=== PATIENT | female | born 1940 | race American Indian/Alaskan Native ===

== ENCOUNTER → 2019-04-02 10:28 | Outpatient (CLI) | payer MEDICARE, BC, SELFPAY ==
--- NOTE | 2019-04-02 | DI.RAD.S_ITS ---
PROCEDURE: XR CHEST 2V INDICATIONS: Dyspnea TECHNIQUE: 2 views of the chest were acquired. COMPARISON: [facility], , CHEST 2 VIEW, 07/20/2015, 10:23. FINDINGS: Surgical changes and devices: None. Lungs and pleura: There is pulmonary vascular congestion. Trace bilateral pleural effusion is seen with blunting of bilateral costophrenic angles. No definite focal infiltrate. No gross pneumothorax. Mediastinum: Mediastinal contours are normal. Heart size is enlarged. Bones and chest wall: No suspicious bony abnormalities. Soft tissues appear unremarkable. IMPRESSION: CHF changes. Trace bilateral pleural effusion. No definite focal infiltrate or gross pneumothorax. Dictated by: Chad Cortés M.D. on 04/02/2019 at 11:33 Approved by: Chad Cortés M.D. on 04/02/2019 at 11:34
[2019-04-02 11:03] LABS: Add Manual Diff / Slide Review NO; Basophils Absolute Auto 100 /uL (0-100); Basophils Percent Auto 0.7 % (0-2); Eosinophils Absolute Auto 100 /uL (0-450); Hematocrit 41.3 % (36-46); Hemoglobin 14.1 g/dL (12.0-16.0); Lymphocytes Absolute Auto 1000 /uL (1100-4500); Lymphocytes Percent Auto 12.8 % (25-40); Mean Corpuscular HGB Conc 34.1 % (30-36); Mean Corpuscular Hemoglobin 35.4 PG (26-34); Mean Corpuscular Volume 103.8 fL (80-100); Monocytes Absolute Auto 900 /uL (0-900); Monocytes Percent Auto 11.6 % (3-14); Neutrophils Absolute Auto 5500 /uL (1500-7000); Neutrophils Percent Auto 72.9 % (50-75); Platelet Count 314 X10^3/uL (150-400); Red Blood Cell Count 3.98 X10^6/uL (4.0-5.2); Red Cell Distribution Width 14.3 % (11.6-14.8); White Blood Cell Count 7.5 X10^3/uL (4.5-11.0)
[2019-04-02 11:12] LABS: Alanine Aminotransferase 28 IU/L (9-52); Albumin 4.5 g/dL (3.5-5.0); Albumin Globulin Ratio 1.3 (1.0-2.8); Alkaline Phosphatase 71 U/L (38-126); Aspartate Aminotransferase 36 IU/L (14-36); BUN Creatinine Ratio 27.8 (6-22); Bilirubin Total 0.7 mg/dL (0.2-1.3); Blood Urea Nitrogen 25 mg/dL (7-17); Calcium 9.5 mg/dL (8.4-10.2); Carbon Dioxide 30 mmol/L (22-32); Chloride 101 mmol/L (98-107); Estimated Glomerular Filt Rate > 60.0 mL/min (>60); Globulin 3.6 g/dL (1.7-4.1); Glucose 94 mg/dL (80-110); HEMOLYSIS < 15 (0-50); Potassium 4.8 mmol/L (3.4-5.1); Sodium 142 mmol/L (137-145); Total Protein 8.1 g/dL (6.3-8.2)
[2019-04-02 11:21] LABS: B Type Natriuretic Peptide 945 (<100)
[2019-04-02 12:25] LABS: TSH w/ Reflex to FT4 1.84 uIU/mL (0.47-4.68)
== END ==
PROVIDERS: PCP Internal Medicine; Visit Provider Internal Medicine
DX: R06.00 Dyspnea, unspecified (principal); I50.9 Heart failure, unspecified; I48.91 Unspecified atrial fibrillation
CPT/HCPCS: 36415; 71046; 80053; 83880; 84443; 85025

== ENCOUNTER → 2019-04-17 14:23 | Outpatient (ROUT) | payer MEDICARE, BC, SELFPAY ==
[2019-04-17 14:45] LABS: Alanine Aminotransferase 75 IU/L (9-52); Albumin Globulin Ratio 1.3 (1.0-2.8); Alkaline Phosphatase 82 U/L (38-126); Aspartate Aminotransferase 58 IU/L (14-36); Bilirubin Total 0.6 mg/dL (0.2-1.3); Blood Urea Nitrogen 28 mg/dL (7-17); Calcium 9.5 mg/dL (8.4-10.2); Carbon Dioxide 31 mmol/L (22-32); Chloride 97 mmol/L (98-107); Estimated Glomerular Filt Rate 53.2 mL/min (>60); Globulin 3.2 g/dL (1.7-4.1); Glucose 92 mg/dL (80-110); HEMOLYSIS < 15 (0-50); Magnesium 2.3 mg/dL (1.6-2.3); Potassium 4.9 mmol/L (3.4-5.1); Sodium 138 mmol/L (137-145); Total Protein 7.2 g/dL (6.3-8.2)
[2019-04-17 14:54] LABS: B Type Natriuretic Peptide 1590 (<100)
== END ==
PROVIDERS: PCP Internal Medicine; Visit Provider Internal Medicine
DX: I50.9 Heart failure, unspecified (principal); I49.9 Cardiac arrhythmia, unspecified
CPT/HCPCS: 80053; 83735; 83880

== ENCOUNTER → 2019-04-21 07:48 | Outpatient (CLI) | payer MEDICARE, BC, SELFPAY ==
--- NOTE | 2019-04-21 08:00 | DI.ECHO.S_ITS ---
Echocardiogram Report + + :Name: KENNETH CONNOLLY Study Date: 04/21/2019 Height: 63 in : :[facility] Exam Location: [facility] Weight: 138 lb : : Gender: Female BSA: 1.7 m2 : :: 1940 Age: 79 yrs BP: 118/90 mmHg: :Reason For Study: Heart failure : :Ordering Physician: Dr. Crowe : :Deya Performed By: Tami Page : + + Interpretation Summary The patient was in atrial fibrillation with heart rates between 96-132 bpm during the exam. Moderately dilated left ventricle with ejection fraction 20-25%. There is severe global hypokinesis of the left ventricle. Grossly normal right ventricle size with borderline reduced right ventricular systolic function. Severely dilated both atria. Moderate to severe mitral regurgitation. Mild tricuspid regurgitation. The right ventricular systolic pressure is estimated to be at least 32 mmHg based on an estimated right atrial pressure of 8 mm Hg. Comparison is made with the echocardiogram of 04/08/2014, LV function has significantly worsen. Procedure: A two-dimensional transthoracic echocardiogram with color flow and Doppler was performed. The study quality was technically adequate. Comparison is made with the echocardiogram of 04/08/2014. The patient was in atrial fibrillation with heart rates between 96-132 bpm during the exam. Left Ventricle: The left ventricle is moderately dilated. There is normal left ventricular wall thickness. The ejection fraction is estimated to be 20- 25%. There is severe global hypokinesis of the left ventricle. Diastolic function could not be accurately assessed due to atrial fibrillation. Right Ventricle: The right ventricle is grossly normal size. Right ventricular systolic function is borderline reduced. Atria: Both atria are severely dilated. There is no Doppler evidence for an interatrial shunt. Mitral Valve: The mitral valve leaflets appear moderately thickened, but open well. There is moderate to severe mitral regurgitation. Aortic Valve: The aortic valve is trileaflet. No aortic regurgitation is present. Tricuspid Valve: The tricuspid valve leaflets are thin and pliable. There is mild tricuspid regurgitation. The right ventricular systolic pressure is estimated to be at least 32 mmHg based on an estimated right atrial pressure of 8 mm Hg. Pulmonic Valve: The pulmonic valve is not well visualized. There is mild pulmonic regurgitation. Great Vessels: The aortic root is normal size. The pulmonary artery is not well visualized, but is probably normal size. The IVC is dilated (diameter is greater than 2.1 cm) yet it collapses greater than 50% with a sniff. This suggests a right atrial pressure of 8 mm Hg. Pericardium/ Pleura There is no pericardial effusion. There is an anterior echo-free space consistent with a fat pad. There is no pleural effusion. MMode/2D Measurements & Calculations LVIDd: 6.0 cm LVOT diam: 2.0 cm LVIDs: 4.9 cm Ao root diam: 2.8 cm FS: 17.9 % asc Aorta Diam: 3.0 cm EPSS: 1.5 cm IVSd: 0.87 cm LVPWd: 0.69 cm LV payton. diameter/BSA (cm/m^2): 3.6 LV sys. diameter/BSA (cm/m^2): 3.0 LA A2 area: 28.5 cm2 RA long axis: 5.9 cm LA A4 area: 23.9 cm2 RA area: 28.1 cm2 LA length (vol): 5.6 cm RA vol: 112.8 ml LA vol: 102.7 ml RA : 68.3 ml/m2 LA vol index: 62.2 ml/m2 IVC diam: 2.2 cm RVD1 (basal): 3.8 cm RVD2 (mid): 2.9 cm Doppler Measurements & Calculations Ao V2 max: 88.2 cm/sec LVOT Max Jonathon: 63.6 cm/sec Ao V2 mean: 66.7 cm/sec LV V1 max P.6 mmHg Ao max P.1 mmHg LV V1 VTI: 9.1 cm Ao mean P.9 mmHg URI(I,D): 2.1 cm2 Ao V2 VTI: 12.9 cm URI(V,D): 2.2 cm2 sev ratio: 0.70 URI indexed to BSA (cm^2/m^2): 1.3 MV E max jonathon: 113.6 cm/sec TR max jonathon: 246.1 cm/sec MV P1/2t: 37.1 msec TR max P.3 mmHg PA V2 max: 55.1 cm/sec PA V2 mean: 33.7 cm/sec PA mean P.54 mmHg PA Accel Time: 0.07 sec MV P1/2t max jonathon: 113.7 cm/sec SV(LVOT): 27.2 ml MVA(P1/2t): 5.9 cm2 _ Electronically signed by: Jose Montana on Reading Physician:04/21/2019 10:35 AM
== END ==
PROVIDERS: PCP Internal Medicine; Visit Provider Internal Medicine
DX: I08.1 Rheumatic disorders of both mitral and tricuspid valves (principal); I50.9 Heart failure, unspecified
CPT/HCPCS: 93306

== ENCOUNTER → 2019-09-18 10:40 | Outpatient (CLI) | payer MEDICARE, BC, SELFPAY ==
[2019-09-18 12:38] LABS: Alanine Aminotransferase 14 IU/L (<35); Albumin 4.5 g/dL (3.5-5.0); Albumin Globulin Ratio 1.3 (1.0-2.8); Alkaline Phosphatase 57 U/L (38-126); Aspartate Aminotransferase 24 IU/L (14-36); Bilirubin Total 0.4 mg/dL (0.2-1.3); Bilirubin Unconjugated 0.4 mg/dL (0.0-1.1); Globulin 3.5 g/dL (1.7-4.1); HEMOLYSIS < 15 (0-50)
[2019-09-18 13:07] LABS: Thyroid Stimulating Hormone 3.24 uIU/mL (0.47-4.68)
== END ==
PROVIDERS: PCP Internal Medicine; Referring Provider Internal Medicine Cardiovascular Disease; Visit Provider Internal Medicine Cardiovascular Disease
DX: I48.91 Unspecified atrial fibrillation (principal); I48.21 Permanent atrial fibrillation
CPT/HCPCS: 36415; 80076; 84443

== ENCOUNTER 2019-09-22 08:30 | Outpatient (RCR) | payer MEDICARE, BC, SELFPAY | END 2019-09-25 07:34 | LOC: CAR 08:30 | PROVIDERS: PCP Internal Medicine; Visit Provider Internal Medicine | DX: I50.22 Chronic systolic (congestive) heart failure (principal); I48.91 Unspecified atrial fibrillation | CPT/HCPCS: 93798 ==

== ENCOUNTER → 2020-01-06 11:45 | Outpatient (CLI) | payer MEDICARE, BC, SELFPAY ==
[2020-01-07 10:48] LABS: COVID19 Sendout NOT DETECTED (Not Detect)
== END ==
PROVIDERS: PCP Student in an Organized Health Care Education/Training Program; Visit Provider Physician Assistant
DX: Z01.812 Encounter for preprocedural laboratory examination (principal)
CPT/HCPCS: 87635

== ENCOUNTER → 2020-01-08 16:38 | Outpatient (CLI) | payer MEDICARE, BC, SELFPAY ==
--- NOTE | 2020-01-16 08:28 | PM.PFT.1 ---
Pulmonary Function Test Referral & Results Date Patient Seen: 01/08/20 Requesting provider: Darnell Rahman Results: The spirometry demonstrates an FVC of 1.30 L which is 53% of predicted. The FEV1 was measured at 780 mL which is 42% of predicted. The FEV1/FVC ratio was 60 which is 81% of predicted. No bronchodilator was administered No lung volumes were obtained. The diffusing capacity was measured at 14.94which is 65% of predicted. No hemoglobin value was provided, so no correction for potential anemia could be made, if appropriate. Interpretation: This patient's basic spirometry demonstrates severe obstructive lung disease based on significant reduction FEV1 which was measured at less than 1 L There is also reduction in diffusing capacity as above suggesting disease at the capillary alveolar level
== END ==
PROVIDERS: PCP Student in an Organized Health Care Education/Training Program; Referring Provider Internal Medicine Cardiovascular Disease; Visit Provider Student in an Organized Health Care Education/Training Program
DX: I50.22 Chronic systolic (congestive) heart failure (principal); Z87.891 Personal history of nicotine dependence
CPT/HCPCS: 94010; 94729

== ENCOUNTER 2020-02-23 09:24 | Emergency (ER) | payer MEDICARE, BC, SELFPAY ==
[2020-02-23 09:42] VITALS: BP 214/113; PULSE 100; RESP 16; TEMP 36.1; O2SAT 97; BMI 23.0
--- NOTE | 2020-02-23 11:29 | ED.UPPEXIN ---
HPI - Extremity Injury (Upper) <CARRIE SimeonP - Last Filed: 02/23/20 12:53> General Chief Complaint: Extremity Injury, Upper Stated Complaint: cut on left hand Time Seen by Provider: 02/23/20 11:15 Source: patient Mode of arrival: Ambulatory Limitations: no limitations History of Present Illness HPI narrative: This is a 80 year female, former smoker, with history of AFib and takes Eliquis and metoprolol ir presents to ED with left dorsal metacarpal skin injury since yesterday afternoon. Patient reports she tripped on a brick walkway and accidentally hit left dorsal hand on a big garden pot and sustain skin injury. Patient was not able to drive at night so she presents this morning for an evaluation and treatment. Patient reports last tetanus immunization received more than 10 years ago. Patient reports intact sensation distal to injuries. She is able to move all her fingers without difficulty. There is moderate swelling on affected site and distally. Slight warmth and redness around the injury site. Related Data Home Medications Medication Instructions Recorded Confirmed Metoprolol Tartrate (LOPRESSOR) 25 mg PO .qday tab 11/21/19 apixaban 2.5 mg tablet 2.5 mg PO BID 11/21/19 11/21/19 valsartan 80 mg tablet 80 mg PO DAILY 11/21/19 11/21/19 Previous Rx's Medication Instructions Recorded cephalexin [Keflex] 500 mg PO Q6H 5 Days #20 cap 02/23/20 Allergies Allergy/AdvReac Type Severity Reaction Status Date / Time No Known Drug Allergies Allergy Unverified 11/21/19 10:23 Review of Systems <DANIELA Simeon - Last Filed: 02/23/20 12:53> Review of Systems Narrative: General: Denies fever, chills, fatigue, malaise, sweats. HEENT: Denies sinus pain, ear pain, sore throat, difficulty swallowing, dizziness. Respiratory: Denies dyspnea, cough, wheezing, hemoptysis, sputum. Cardiovascular: Denies chest pain, palpitations, orthopnea, edema. Gastrointestinal: Denies nausea, vomiting, abdominal pain, diarrhea, constipation, melena. : Denies dysuria, frequency, incontinence, hematuria, urinary retention. Musculoskeletal: Denies weakness, joint pain or bony pain. Skin: See HPI Neurologic: Denies weakness, headache, numbness, change in speech, confusion, seizures, incoordination. Psychiatric: No concerning psychosocial issues. 12-point review of systems is negative except for those stated above. Patient History <DANIELA Simeon - Last Filed: 02/23/20 12:53> Medical History Atrial fibrillation with rapid ventricular response (Chronic ~2011) Chicken pox (Resolved ~1943) Measles (Resolved) Plantar warts (Inactive ~1951) Tinnitus (Chronic ~2014) Surgical History History of cataract removal with insertion of prosthetic lens (Resolved ~2017) Family History Father History of heart disease Mother Cancer Sister Cancer Social History Smoking Status: Former smoker Smoking Status: Former smoker alcohol intake frequency: 0-2 drinks per day Substance Use Type: does not use Exam <DANIELA Simeon - Last Filed: 02/23/20 12:53> Narrative Exam Narrative: General appearance: well developed, well nourished, in no acute distress. Head: normocephalic, atraumatic, no scalp lesions, non-tender. ENT: Bilateral auditory canals and tympanic membranes clear. Hearing grossly intact. Nose without bleeding, purulent discharge, septal hematoma or deviation. Turbinate without erythema or swelling. Facial sinuses nontender to palpate. Mucous membrane moist, no mucosal lesion. Throat without erythema, tonsillar hypertrophy or exudate. Uvula in midline, airway patent. Neck/Thyroid: neck supple, full range of motion, no visible masses or meningeal signs. No JVD, non-tender without lymphadenopathy. Skin: 3 x 3 cm flap-like skin tear w/o active bleeding. slight warmth, swelling and redness around the injury. Warm and dry and appropriate color for ethnicity. Heart: no clubbing, no cyanosis, no edema. S1 and S2 normal. RRR w/o murmurs, clicks, or bruits. Lungs: Breathing even and unlabored. No stridor. No accessory muscles used. Able to speak in full sentences. Chest: normal shape and expansion. Abdomen: non-obese, non-distended. Neurologic: alert and oriented. 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 Psych: good eye contact, normal affect. Initial Vital Signs Initial Vital Signs: Vital Signs Temperature 97.0 F L 02/23/20 09:42 Pulse Rate 100 H 02/23/20 09:42 Respiratory Rate 16 02/23/20 09:42 Blood Pressure 214/113 H 02/23/20 09:42 Pulse Oximetry 97 02/23/20 09:42 Extrem Left upper extremity: wrist Details: normal to inspection and normal ROM; no tenderness and no swelling and hand Details: abnormal to inspection, normal capillary refill, neuromotor exam normal, neurosensory exam normal, normal ROM of fingers, warmth, swelling and other (erythema around the injury); no foreign bodies and no puncture wound <Too Abdalla MD - Last Filed: 02/24/20 07:35> Initial Vital Signs Initial Vital Signs: Vital Signs Temperature 97.0 F L 02/23/20 09:42 Pulse Rate 100 H 02/23/20 09:42 Respiratory Rate 16 02/23/20 09:42 Blood Pressure 214/113 H 02/23/20 09:42 Pulse Oximetry 97 02/23/20 09:42 Procedures <DANIELA Simeon - Last Filed: 02/23/20 12:53> Laceration Repair Laceration 1: Site: hand Side (If applicable): left Size (cm): 3 (3x3) Description: flap Depth: simple, single layer Pre-repair: wound explored and irrigated extensively Skin layer closed with: steri-strips Scores <DANIELA Simeon - Last Filed: 02/23/20 12:53> GCS Ryan coma scale eye opening: Spontaneous Ryan coma scale verbal response: Orientated Ryan coma scale motor response: Obey commands [place] coma scale total score: 15 Course <DANIELA Simeon - Last Filed: 02/23/20 12:53> Orders Ordered: Discontinued Medications Bacitracin (Bacitracin) 1 applic TOP NOW ONE Stop: 02/23/20 11:29 Last Admin: 02/23/20 11:52 Dose: 1 applic Documented by: BTONER Cephalexin HCl (Keflex) 500 mg PO NOW ONE Stop: 02/23/20 11:29 Last Admin: 02/23/20 11:52 Dose: 500 mg Documented by: BTONER Diphtheria/Tetanus/Acell Pertussis (Adacel) 0.5 ml IM .ONCE ONE Stop: 02/23/20 11:26 Last Admin: 02/23/20 11:48 Dose: Not Given Documented by: BTONER Tetanus/Diphtheria Toxoids (Td) 0.5 ml IM .ONCE ONE Stop: 02/23/20 11:48 Last Admin: 02/23/20 11:51 Dose: 0.5 ml Documented by: BTONER Vital Signs Vital signs: Vital Signs - 8 hr 02/23/20 09:42 Temperature 97.0 F L Pulse Rate 100 H Respiratory Rate 16 Blood Pressure 214/113 H Pulse Oximetry 97 <Too Abdalla MD - Last Filed: 02/24/20 07:35> Orders Ordered: Discontinued Medications Bacitracin (Bacitracin) 1 applic TOP NOW ONE Stop: 02/23/20 11:29 Last Admin: 02/23/20 11:52 Dose: 1 applic Documented by: BTONER Cephalexin HCl (Keflex) 500 mg PO NOW ONE Stop: 02/23/20 11:29 Last Admin: 02/23/20 11:52 Dose: 500 mg Documented by: BTONER Diphtheria/Tetanus/Acell Pertussis (Adacel) 0.5 ml IM .ONCE ONE Stop: 02/23/20 11:26 Last Admin: 02/23/20 11:48 Dose: Not Given Documented by: BTONER Tetanus/Diphtheria Toxoids (Td) 0.5 ml IM .ONCE ONE Stop: 02/23/20 11:48 Last Admin: 02/23/20 11:51 Dose: 0.5 ml Documented by: BTONER Vital Signs Vital signs: Vital Signs - 8 hr 02/23/20 09:42 Temperature 97.0 F L Pulse Rate 100 H Respiratory Rate 16 Blood Pressure 214/113 H Pulse Oximetry 97 MDM - Extremity Injury (Upper) <DANIELA Simeon - Last Filed: 02/23/20 12:53> Differential Diagnosis Differential diagnosis: Likely other (Skin tear, laceration, contusion, cellulitis) Medical Records Attestation: I reviewed the patient's medical records. MDM Narrative Medical decision making narrative: This is a 80 year female who presents to ED with left non dominant hand dorsal aspect metacarpal skin tear which happened yesterday afternoon. Surrounding site with mild erythema, swelling, warmth. No active bleeding at this time but skin wound edges not approximate well when attempted to put together. Skin tear is not deep enough to repair with suture. Skin tear was repaired with Steri-Strips after patient soaked in Hibiclens water and dressed with Allevyn Gentle boarder. Patient advised to monitor for signs and symptoms for infection and to follow-up with Dr. Quijano in two to three days. Started patient on antibiotic medication Keflex 500 mg Q i.d. Dose for 5 days due to surrounding skin findings. Patient up dated with tetanus immunization today. Return precautions were discussed with the patient and patient verbalized understanding and agreement with the treatment plan. Discharge Plan Departure Patient Disposition: Home Clinical Impression: Skin tear of left upper extremity Discharge Date/Time: 02/23/20 12:25 Instructions: DI for Laceration Repair-Skin Closure Strips Activity Restrictions/Additional Instructions: You have been diagnosed with [skin tear on left non dominant hand dorsal metacarpal which repaired with Steri-Strips. You were treated with 1st dose of Keflex while in ED.]. What to do: *Take your medications as directed. Please continue with Keflex 4 times a day for next 5 days. You can take [id number] Tylenol as needed for discomfort. Keflex has been transmitted to [facility]. *Follow up with your primary care provider in 2-3 days, call for an appointment. Let them know you were seen in the ED and that we asked you to be seen in follow up. Please monitor for signs and symptoms for infection such as increasing pain, redness, warmth to touch, purulent discharge, fever. *Return to ED if you have any new, worsening, or concerning symptoms, such as signs and symptoms for infection, chest pain, breathing difficulty, unable to tolerate fluids, or any acute concerns. Prescriptions: New cephalexin [Keflex] 500 mg capsule 500 mg PO Q6H 5 Days Qty: 20 RF: 0 No Action Eliquis 2.5 mg tablet 2.5 mg PO BID RF: 0 valsartan 80 mg tablet 80 mg PO DAILY RF: 0 Metoprolol Tartrate (LOPRESSOR) 25 mg PO .qday RF: 0 Referrals: Andi Quijano MD [Primary Care Provider] - <Too Abdalla MD - Last Filed: 02/24/20 07:35> Cosign ED Attending Cosignature Attestation: I was immediately available in the department for consultation. This documentation has been reviewed and I agree with assessment and plan. Supervised by Too Abdalla MD
[2020-02-23] MEDS: TETANUS DIPHTHERIA TOXOIDS 0.5 ML VIAL IM (11:51)
[2020-02-23] MEDS: BACITRACIN OINT 0.9 GM PCKT 1 APPLIC TOP (11:52)
[2020-02-23] MEDS: cephALEXin 250 MG CAPSULE 500 MG PO (11:52)
[2020-02-23 12:23] VITALS: PULSE 72
== END 2020-02-23 12:25 | disposition home or self-care (01) ==
PROVIDERS: Emergency Provider Nurse Practitioner Family; PCP Student in an Organized Health Care Education/Training Program
DX: S61.412A Laceration without foreign body of left hand, initial encounter (principal); W19.XXXA Unspecified fall, initial encounter; I10 Essential (primary) hypertension; I48.91 Unspecified atrial fibrillation; Z79.01 Long term (current) use of anticoagulants; Z23 Encounter for immunization
CPT/HCPCS: 90471; 90714; 99283

== ENCOUNTER → 2020-09-23 10:21 | Outpatient (CLI) | payer MEDICARE, BC, SELFPAY ==
[2020-09-23 11:31] LABS: BUN Creatinine Ratio 24.1 (6-22); Blood Urea Nitrogen 21 mg/dL (7-17); Calcium 9.5 mg/dL (8.4-10.2); Carbon Dioxide 32 mmol/L (22-32); Chloride 100 mmol/L (98-107); Estimated Glomerular Filt Rate > 60.0 mL/min (>60); Glucose 102 mg/dL (80-110); HEMOLYSIS < 15 (0-50); Potassium 4.5 mmol/L (3.4-5.1); Sodium 139 mmol/L (137-145)
== END ==
PROVIDERS: PCP Student in an Organized Health Care Education/Training Program; Referring Provider Internal Medicine Cardiovascular Disease; Visit Provider Internal Medicine Cardiovascular Disease
DX: I48.91 Unspecified atrial fibrillation (principal); I48.19 Other persistent atrial fibrillation
CPT/HCPCS: 36415; 80048

== ENCOUNTER 2022-06-05 14:38 | Emergency (ER) | payer MEDICARE, BC, SELFPAY ==
[2022-06-05] VITALS (8 sets, daily range): BP systolic 166–196; BP diastolic 82–102; PULSE 98–113; RESP 20–35; TEMP 37.3; O2SAT 92–96
--- NOTE | 2022-06-05 14:51 | DI.RAD.S_ITS ---
PROCEDURE: XR CHEST 1V INDICATIONS: Shortness of breath TECHNIQUE: One view of the chest was acquired. COMPARISON: [facility], CR, XR CHEST 2V, 04/02/2019, 10:58. FINDINGS: Surgical changes and devices: None. Lungs and pleura: Mild increased pulmonary vascularity. Mediastinum: Mediastinal contours appear normal. Heart size is enlarged Bones and chest wall: No suspicious bony lesions. Overlying soft tissues appear unremarkable. IMPRESSION: Cardiomegaly with increased vascularity suggestive of edema. Dictated by: Raven Carty M.D. on 06/05/2022 at 16:58 Approved by: Raven Carty M.D. on 06/05/2022 at 16:58
[2022-06-05 15:59] LABS: Influenza A - CEPHEID Flu A NEGATIVE (NEGATIVE); Influenza B - CEPHEID Flu B NEGATIVE (NEGATIVE); Respiratory Syncytial Virus Negative (Negative)
[2022-06-05 16:04] LABS: INR 1.3 (0.9-1.3); Prothrombin Time 15.4 SECONDS (10.1-12.7)
[2022-06-05 16:04] LABS: COVID-19 CEPHEID 4-PLEX PCR POSITIVE (Negative)
[2022-06-05 16:08] LABS: Lactate (Lactic Acid) 0.7 mmol/L (0.7-2.1)
[2022-06-05 16:09] LABS: Add Manual Diff / Slide Review NO; Alanine Aminotransferase 15 IU/L (<35); Albumin Globulin Ratio 1.1 (1.0-2.8); Alkaline Phosphatase 72 U/L (38-126); Aspartate Aminotransferase 25 IU/L (14-36); BUN Creatinine Ratio 20.5 (6-22); Basophils Absolute Auto 0 /uL (0-100); Basophils Percent Auto 0.9 % (0-2); Bilirubin Total 0.6 mg/dL (0.2-1.3); Blood Urea Nitrogen 16 mg/dL (7-17); Carbon Dioxide 30 mmol/L (22-32); Chloride 97 mmol/L (98-107); Eosinophils Absolute Auto 100 /uL (0-450); Eosinophils Percent Auto 2.4 % (2-4); Estimated Glomerular Filt Rate > 60 mL/min (>60); Globulin 3.7 g/dL (1.7-4.1); Glucose 102 mg/dL (80-110); HEMOLYSIS < 15 (0-50); Hematocrit 40.3 % (36-46); Hemoglobin 13.9 g/dL (12.0-16.0); Lymphocytes Absolute Auto 200 /uL (1100-4500); Lymphocytes Percent Auto 4.3 % (25-40); Mean Corpuscular HGB Conc 34.4 % (30-36); Mean Corpuscular Hemoglobin 35.6 PG (26-34); Mean Corpuscular Volume 103.3 fL (80-100); Monocytes Absolute Auto 900 /uL (0-900); Monocytes Percent Auto 18.5 % (3-14); Neutrophils Absolute Auto 3600 /uL (1500-7000); Neutrophils Percent Auto 73.9 % (50-75); Platelet Count 219 X10^3/uL (150-400); Potassium 4.1 mmol/L (3.4-5.1); Red Cell Distribution Width 14.4 % (11.6-14.8); Sodium 136 mmol/L (137-145); Total Protein 7.7 g/dL (6.3-8.2); White Blood Cell Count 4.9 X10^3/uL (4.5-11.0)
[2022-06-05 16:21] LABS: NT-proBNP (BNP-Adult 18+) 2120 pg/mL (<450); Troponin I < 0.012 ng/mL (0.01-0.034)
[2022-06-05] MEDS: ACETAMINOPHEN 325 MG TABLET 975 MG PO (18:04)
--- NOTE | 2022-06-05 18:09 | ED.SOB ---
HPI - SOB/Dyspnea General Chief Complaint: Shortness of Breath/Dyspnea Stated Complaint: Very Ill feeling in AFIB, Nausea Time Seen by Provider: 06/05/22 17:52 Source: patient Mode of arrival: Family Vehicle History of Present Illness HPI Narrative: 82-year-old female former smoker with history of hypertension and atrial fibrillation chronically on Eliquis presents to the emergency department with a chief complaint of feeling generally unwell since yesterday with complaints including nausea, generalized headache and shortness of breath. She has been nauseated and had some dry heaves but no actual vomiting. She is had no fever but does complain of some chills. She has no headache, blurred vision or neck pain. She has no runny nose or sore throat. She has had a dry and hacking cough. She states that she does become slightly more short of breath with exertion but denies any orthopnea. She has no weight gain or swelling in her legs. She states she has persistent atrial fibrillation. She denies any change in her medications Related Data Home Medications Medication Instructions Recorded Confirmed apixaban 2.5 mg tablet (Eliquis) 2.5 mg PO BID 11/21/19 02/25/20 valsartan 80 mg tablet 80 mg PO DAILY 11/21/19 02/25/20 diltiazem HCl 180 mg 180 mg PO DAILY HR and BP control 09/21/20 capsule,extended release 24 hr Previous Rx's Medication Instructions Recorded furosemide 40 mg tablet (Lasix) 40 mg PO DAILY #4 tabs 06/05/22 Allergies Allergy/AdvReac Type Severity Reaction Status Date / Time No Known Drug Allergies Allergy Unverified 06/05/22 14:51 Review of Systems Review of Systems Narrative: GENERAL: See HPI HEENT: Denies sinus pain, ear pain, sore throat, difficulty swallowing, dizziness. RESPIRATORY: See HPI CARDIOVASCULAR: See HPI GASTROINTESTINAL: See HPI : Denies dysuria, frequency, incontinence, hematuria, urinary retention. MUSCULOSKELETAL: denies weakness, joint pain, or bony pain SKIN: Denies rash, skin lesions, or other NEUROLOGIC: Denies weakness, headache, numbness, change in speech, confusion, seizures, incoordination. PSYCHIATRIC: No concerning psychosocial issues. 12 point review of systems is negative except for those stated above Patient History Medical History Atrial fibrillation with rapid ventricular response (~2011) Chicken pox (~1944) Measles Plantar warts (~1952) Tinnitus (~2015) Surgical History History of cataract removal with insertion of prosthetic lens (~2017) Family History Father History of heart disease Mother Cancer Sister Cancer Social History Smoking Status: Former smoker Smoking Status: Former smoker alcohol intake frequency: 0-2 drinks per day Substance Use Type: does not use Exam Narrative Exam Narrative: GENERAL: [82] year old patient appears stated age. Well-developed patient, in mild distress. No increased work of breathing, no hypoxemia HEAD: Atraumatic. Normocephalic. EYES: Pupils equal round and reactive. Extraocular motions intact. No scleral icterus. No injection or drainage. ENT: Nose without bleeding, purulent drainage. Throat without erythema, tonsillar hypertrophy or exudate. Airway patent. NECK: Trachea midline. Non tender CARDIOVASCULAR: Mildly tachycardic but regular d rhythm without murmurs, gallops, or rubs. RESPIRATORY: Faint crackles in bilateral bases, no tachypnea, hypoxemia or use of accessory muscles. GASTROINTESTINAL: Abdomen soft, non-tender, nondistended. EXTREMITIES: No edema or joint tenderness. BACK: Nontender without deformity or crepitance. No flank tenderness. NEURO: AOx3. SKIN: No rash or erythema of visible areas Initial Vital Signs Initial Vital Signs: Vital Signs Temperature 99.2 F 06/05/22 14:43 Pulse Rate 104 H 06/05/22 14:43 Respiratory Rate 22 06/05/22 14:43 Blood Pressure 182/96 H 06/05/22 14:43 Pulse Oximetry 96 06/05/22 14:43 Oxygen Delivery Method 06/05/22 14:43 Course Orders Ordered: Discontinued Medications Acetaminophen (Acetaminophen 325 Mg Tablet) 975 mg PO NOW ONE Stop: 06/05/22 17:53 Last Admin: 06/05/22 18:04 Dose: 975 mg Documented By: JSEUS Furosemide (Furosemide 40 Mg/4 Ml Vial) 40 mg IV NOW ONE Stop: 06/05/22 18:10 Last Admin: 06/05/22 18:36 Dose: 40 mg Documented By: JESUS Vital Signs Vital signs: Vital Signs - 8 hr 06/05/22 14:43 06/05/22 17:09 06/05/22 17:30 Temperature 99.2 F 99.2 F Pulse Rate 104 H 102 H Respiratory Rate 22 22 Blood Pressure 182/96 H 173/102 H Pulse Oximetry 96 95 Oxygen Delivery Method Room Air 06/05/22 17:30 06/05/22 18:00 06/05/22 18:00 Temperature Pulse Rate 113 H 102 H Respiratory Rate 35 H 20 Blood Pressure 173/89 H Pulse Oximetry 92 94 Oxygen Delivery Method Room Air 06/05/22 18:30 06/05/22 18:30 06/05/22 19:00 Temperature Pulse Rate 98 H Respiratory Rate 24 Blood Pressure 178/82 H 196/93 H Pulse Oximetry 94 Oxygen Delivery Method 06/05/22 19:00 Temperature Pulse Rate 105 H Respiratory Rate 34 H Blood Pressure Pulse Oximetry 95 Oxygen Delivery Method MDM - SOB/Dyspnea Lab Data Result diagrams: 06/05/22 15:22 06/05/22 15:22 Labs: Lab Results 06/05/22 06/05/22 06/05/22 Range/Units 14:54 15:22 15:22 WBC 4.9 (4.5-11.0) X10^3/uL RBC 3.90 L (4.0-5.2) X10^6/uL Hgb 13.9 (12.0-16.0) g/dL Hct 40.3 (36-46) % MCV 103.3 H (80-100) fL MCH 35.6 H (26-34) PG MCHC 34.4 (30-36) % RDW 14.4 (11.6-14.8) % Plt Count 219 (150-400) X10^3/uL Neut % (Auto) 73.9 (50-75) % Lymph % (Auto) 4.3 L (25-40) % [place] % (Auto) 18.5 H (3-14) % Eos % (Auto) 2.4 (2-4) % Baso % (Auto) 0.9 (0-2) % Neut # (Auto) 3600 (7147-8623) /uL Lymph # (Auto) 200 L (2560-2878) /uL [place] # (Auto) 900 (0-900) /uL Eos # (Auto) 100 (0-450) /uL Baso # (Auto) 0 (0-100) /uL PT 15.4 H (10.1-12.7) SECONDS INR 1.3 (0.9-1.3) D-Dimer (<500) ng/ml Sodium (137-145) mmol/L Potassium (3.4-5.1) mmol/L Chloride (98-107) mmol/L Carbon Dioxide (22-32) mmol/L BUN (7-17) mg/dL Creatinine (0.52-1.04) mg/dL Estimated GFR (>60) mL/min BUN/Creatinine Ratio (6-22) Glucose (80-110) mg/dL Lactate (0.7-2.1) mmol/L Calcium (8.4-10.2) mg/dL Total Bilirubin (0.2-1.3) mg/dL AST (14-36) IU/L ALT (<35) IU/L Alkaline Phosphatase (38-126) U/L Troponin I (0.01-0.034) ng/mL NT-Pro-B Natriuret Pep (<450) pg/mL Total Protein (6.3-8.2) g/dL Albumin (3.5-5.0) g/dL Globulin (1.7-4.1) g/dL Albumin/Globulin Ratio (1.0-2.8) Procalcitonin (<0.5) ng/mL SARS-CoV-2 (PCR) Positive H (Negative) Influenza A (RT-PCR) Flu a negative (NEGATIVE) Influenza B (RT-PCR) Flu b negative (NEGATIVE) RSV (PCR) Negative (Negative) 06/05/22 06/05/22 06/05/22 Range/Units 15:22 15:22 15:22 WBC (4.5-11.0) X10^3/uL RBC (4.0-5.2) X10^6/uL Hgb (12.0-16.0) g/dL Hct (36-46) % MCV (80-100) fL MCH (26-34) PG MCHC (30-36) % RDW (11.6-14.8) % Plt Count (150-400) X10^3/uL Neut % (Auto) (50-75) % Lymph % (Auto) (25-40) % [place] % (Auto) (3-14) % Eos % (Auto) (2-4) % Baso % (Auto) (0-2) % Neut # (Auto) (1631-4794) /uL Lymph # (Auto) (7877-2169) /uL [place] # (Auto) (0-900) /uL Eos # (Auto) (0-450) /uL Baso # (Auto) (0-100) /uL PT (10.1-12.7) SECONDS INR (0.9-1.3) D-Dimer 275 (<500) ng/ml Sodium 136 L (137-145) mmol/L Potassium 4.1 (3.4-5.1) mmol/L Chloride 97 L (98-107) mmol/L Carbon Dioxide 30 (22-32) mmol/L BUN 16 (7-17) mg/dL Creatinine 0.78 (0.52-1.04) mg/dL Estimated GFR > 60 (>60) mL/min BUN/Creatinine Ratio 20.5 (6-22) Glucose 102 (80-110) mg/dL Lactate 0.7 (0.7-2.1) mmol/L Calcium 9.0 (8.4-10.2) mg/dL Total Bilirubin 0.6 (0.2-1.3) mg/dL AST 25 (14-36) IU/L ALT 15 (<35) IU/L Alkaline Phosphatase 72 (38-126) U/L Troponin I < 0.012 (0.01-0.034) ng/mL NT-Pro-B Natriuret Pep 2120 H (<450) pg/mL Total Protein 7.7 (6.3-8.2) g/dL Albumin 4.0 (3.5-5.0) g/dL Globulin 3.7 (1.7-4.1) g/dL Albumin/Globulin Ratio 1.1 (1.0-2.8) Procalcitonin (<0.5) ng/mL SARS-CoV-2 (PCR) (Negative) Influenza A (RT-PCR) (NEGATIVE) Influenza B (RT-PCR) (NEGATIVE) RSV (PCR) (Negative) 06/05/22 Range/Units 15:22 WBC (4.5-11.0) X10^3/uL RBC (4.0-5.2) X10^6/uL Hgb (12.0-16.0) g/dL Hct (36-46) % MCV (80-100) fL MCH (26-34) PG MCHC (30-36) % RDW (11.6-14.8) % Plt Count (150-400) X10^3/uL Neut % (Auto) (50-75) % Lymph % (Auto) (25-40) % [place] % (Auto) (3-14) % Eos % (Auto) (2-4) % Baso % (Auto) (0-2) % Neut # (Auto) (3479-8666) /uL Lymph # (Auto) (6340-9861) /uL [place] # (Auto) (0-900) /uL Eos # (Auto) (0-450) /uL Baso # (Auto) (0-100) /uL PT (10.1-12.7) SECONDS INR (0.9-1.3) D-Dimer (<500) ng/ml Sodium (137-145) mmol/L Potassium (3.4-5.1) mmol/L Chloride (98-107) mmol/L Carbon Dioxide (22-32) mmol/L BUN (7-17) mg/dL Creatinine (0.52-1.04) mg/dL Estimated GFR (>60) mL/min BUN/Creatinine Ratio (6-22) Glucose (80-110) mg/dL Lactate (0.7-2.1) mmol/L Calcium (8.4-10.2) mg/dL Total Bilirubin (0.2-1.3) mg/dL AST (14-36) IU/L ALT (<35) IU/L Alkaline Phosphatase (38-126) U/L Troponin I (0.01-0.034) ng/mL NT-Pro-B Natriuret Pep (<450) pg/mL Total Protein (6.3-8.2) g/dL Albumin (3.5-5.0) g/dL Globulin (1.7-4.1) g/dL Albumin/Globulin Ratio (1.0-2.8) Procalcitonin 0.07 (<0.5) ng/mL SARS-CoV-2 (PCR) (Negative) Influenza A (RT-PCR) (NEGATIVE) Influenza B (RT-PCR) (NEGATIVE) RSV (PCR) (Negative) Imaging Data Chest x-ray: Radiologist's Impression: [address] [address] XRay Report Signed Patient: Marisa Moreno MR#: [id number] : 1940 Acct:[id number] Age/Sex: 82 / F Date of Service: 06/05/22 Loc: ED Accession Number: [id number] ?? Procedure: XR chest 1V Ordering Provider: Sonja Carrasquillo D.O. PROCEDURE:? XR CHEST 1V ? INDICATIONS:? Shortness of breath ? TECHNIQUE:? One view of the chest was acquired.? ? COMPARISON:? [facility], CR, XR CHEST 2V, 04/02/2019, 10:58. ? FINDINGS:? ? Surgical changes and devices:? None.? ? Lungs and pleura:? Mild increased pulmonary vascularity. ? Mediastinum:? Mediastinal contours appear normal.? Heart size is enlarged ? Bones and chest wall:? No suspicious bony lesions.? Overlying soft tissues appear unremarkable.? ? IMPRESSION:? Cardiomegaly with increased vascularity suggestive of edema.? ? ? Dictated by: Raven Carty M.D. on 06/05/2022 at 16:58 ? ? Approved by: Raven Carty M.D. on 06/05/2022 at 16:58 ? MDM Narrative Medical decision making narrative: Multiple etiologies for patient's symptoms considered including: [Viral upper respiratory infection versus CHF versus pneumonia versus other] Patient's symptoms improved over duration of stay with above-stated therapies. She is ambulatory in the department after receiving Lasix which resulted in the production of dilute urine. Ambulatory pulse ox notes saturations in the low 90s with easy work of breathing, patient states she feels much better Findings and discharge diagnosis discussed with patient/family followed by verbalization of understanding Return precautions discussed with patient/family whom verbalize understanding. Discharge Plan Departure Patient Disposition: Home Clinical Impression: COVID-19, CHF (congestive heart failure) Instructions: Congestive Heart Failure (Alternative Therapy), COVID-19 Activity Restrictions/Additional Instructions: *You have been diagnosed with [shortness of breath due to acute exacerbation of CHF and COVID] *What to do: *Please continue to take your regular medications as directed. [ x] New medication prescriptions sent to your pharmacy: [ [facility]] [ ] New medication written as a paper prescription [ ] No new medications given *Please follow up with your primary care provider in 2-3 days, call for an appointment. Let them know you were seen in the Emergency Department and that we ask that you be seen in follow up. We will electronically transmit a record of today's note if your PCP is in our system *Return to Emergency Department if you should have any new, worsening or concerning symptoms, such as [fever greater than 101 F, shaking chills, worsening pain, persistent vomiting or other bothersome symptoms] *You have been diagnosed with [ COVID-19] *What to do: ?* per recommendations from the CDC and the [facility] Department of Health ?* stay home except to get medical care. ?Restrict activities outside your home, except for getting medical care. ?Do not go to work, school, or public areas. ?Avoid using public transportation, ride sharing, or taxis. ?* separate yourself from other people in your home. ?* call ahead before visiting your doctor ?* Wear a facemask ?* Cover your coughs and sneezes ?* Clean your hands often ?* Avoid sharing household items ?* Clean all high-touch services every day ?* Monitor your symptoms and seek prompt medical attention if your illness is worsening, particularly with difficulty in breathing. You may discontinue your isolation when: ?1. You have been fever-free for at least 24 hours without the use of fever reducing medication, AND ?2. Your symptoms are getting better, AND ?3. At least 5 days have passed since symptoms first appeared ?4. If you have fever, continue to stay home until fever resolves Individuals with laboratory confirmed COVID-19 who have not had any symptoms may discontinue home isolation when at least 5 days have passed since the date of their first COVID-19 diagnostic test and have had no subsequent illness You should notifiy any friends and family that have been in close contact *If up to date on COVID Vaccines, then they do not need to quarantine unless symptoms develop. Get tested on day 5 (or sooner if symptoms develop). Take precautions and watch for symptoms until day 10 *If NOT up to date on COVID Vaccines, then CDC recommends quarantine for at least 5 full days. Wear a well fitted mask at home if you must be around others. If they ?develop symptoms they should get tested. If they remain asymptomatic they should get tested on day 5. They should take precautions and monitor for symptoms until day 10. Prescriptions: New furosemide [Lasix] 40 mg tablet 40 mg PO DAILY Qty: 4 0RF No Action diltiazem HCl 180 mg capsule,extended release 24hr 180 mg PO DAILY Eliquis 2.5 mg tablet 2.5 mg PO BID valsartan 80 mg tablet 80 mg PO DAILY Referrals: Andi Quijano MD [Primary Care Provider] - Visit Report Forms: Patient Portal/API
[2022-06-05] MEDS: FUROSEMIDE 40 MG/4 ML VIAL IV (18:36)
[2022-06-05 18:42] LABS: D Dimer 275 ng/ml (<500)
[2022-06-05 18:55] LABS: Procalcitonin 0.07 ng/mL (<0.5)
== END 2022-06-05 19:48 | disposition home or self-care (01) ==
PROVIDERS: Emergency Medicine; Emergency Provider Emergency Medicine; PCP Student in an Organized Health Care Education/Training Program
DX: U07.1 COVID-19 (principal); I50.9 Heart failure, unspecified; I48.20 Chronic atrial fibrillation, unspecified; Z79.01 Long term (current) use of anticoagulants; R06.02 Shortness of breath
CPT/HCPCS: 0241U; 71045; 80053; 83605; 83880; 84145; 84484; 85025; 85379; 85610; 93005; 96374; 99284; J1940

== ENCOUNTER 2022-06-11 16:33 | Emergency (ER) | payer MEDICARE, BC, SELFPAY ==
[2022-06-11] VITALS (12 sets, daily range): BP systolic 145–188; BP diastolic 75–95; PULSE 95–104; RESP 22–24; TEMP 36.3; O2SAT 92–95; BMI 23.6
--- NOTE | 2022-06-11 17:52 | DI.RAD.S_ITS ---
PROCEDURE: XR CHEST 1V INDICATIONS: chest pain TECHNIQUE: One view of the chest was acquired. COMPARISON: [facility], RANDELL, CHEST 2 VIEW, 07/20/2015, 10:23. [facility], RANDELL, XR CHEST 1V, 06/05/2022, 15:02. [facility], CR, XR CHEST 2V, 04/02/2019, 10:58. FINDINGS: Surgical changes and devices: None. Lungs and pleura: Lungs are clear. No pleural effusions or pneumothorax. Mediastinum: Mediastinal contours appear normal. Heart size is normal. Bones and chest wall: No suspicious bony lesions. Overlying soft tissues appear unremarkable. IMPRESSION: No acute cardiopulmonary disease. Dictated by: Howard Robertson M.D. on 06/11/2022 at 18:54 Approved by: Howard Robertson M.D. on 06/11/2022 at 18:54
--- NOTE | 2022-06-11 18:06 | ED_ITS ---
HPI - SOB/Dyspnea General Chief Complaint: Shortness of Breath/Dyspnea Stated Complaint: Dyspnea, SOB Time Seen by Provider: 06/11/22 16:55 Source: patient Mode of arrival: Ambulatory History of Present Illness HPI Narrative: Patient is a 82-year-old female history of hypertension, congestive heart failure, atrial fibrillation on Eliquis diagnosed with COVID on 06/05/2022. She has had had symptoms for about 1 week. She was having nausea headache and some shortness of breath. She says those symptoms have actually gone away. She has not have any fever or chills. However she still has a cough. She states that she is eating and drinking. She denies any chest pain. She denies any swelling orthopnea or dyspnea with exertion. Related Data Home Medications Medication Instructions Recorded Confirmed apixaban 2.5 mg tablet (Eliquis) 2.5 mg PO BID 11/21/19 02/25/20 valsartan 80 mg tablet 80 mg PO DAILY 11/21/19 02/25/20 diltiazem HCl 180 mg 180 mg PO DAILY HR and BP control 09/21/20 capsule,extended release 24 hr Previous Rx's Medication Instructions Recorded furosemide 40 mg tablet (Lasix) 40 mg PO DAILY #4 tabs 06/05/22 Allergies Allergy/AdvReac Type Severity Reaction Status Date / Time No Known Drug Allergies Allergy Unverified 06/05/22 14:51 Review of Systems Review of Systems Narrative: GENERAL: Denies chills, fatigue, malaise, fever, sweats, travel HEENT: Denies sinus pain, ear pain, sore throat, difficulty swallowing, neck pain RESPIRATORY: See HPI CARDIOVASCULAR: See HPI GASTROINTESTINAL: Denies nausea, vomiting, abdominal pain, diarrhea, constipation, melena. : Denies dysuria, frequency, incontinence, hematuria, urinary retention, flank pain. MUSCULOSKELETAL: Denies weakness, joint pain, or bony pain SKIN: No rash, no erythema, no pruritus NEUROLOGIC: Denies weakness, dizziness, headache, numbness, change in speech, confusion PSYCHIATRIC: No concerning psychosocial issues. 12 point review of systems is negative except for those stated above and HPI Patient History Medical History Atrial fibrillation with rapid ventricular response (~2011) Chicken pox (~1944) Measles Plantar warts (~1952) Tinnitus (~2015) Surgical History History of cataract removal with insertion of prosthetic lens (~2017) Family History Father History of heart disease Mother Cancer Sister Cancer Social History Smoking Status: Former smoker Smoking Status: Former smoker alcohol intake frequency: 0-2 drinks per day Alcohol type: wine Substance Use Type: does not use Exam Initial Vital Signs Initial Vital Signs: Vital Signs Temperature 97.3 F L 06/11/22 16:35 Pulse Rate 102 H 06/11/22 16:35 Respiratory Rate 24 06/11/22 16:35 Blood Pressure 188/95 H 06/11/22 16:35 Pulse Oximetry 95 06/11/22 16:35 Oxygen Delivery Method 06/11/22 16:35 GENERAL: Alert 82-year-old female appears in no acute distress no dyspnea HEENT: Head atraumatic,EOMI, pupils reactive, face symmetric, moist mucous membranes CARDIOVASCULAR: Irregularly irregular no murmur RESPIRATORY: Breath sounds equal bilaterally, no wheezes rales or rhonchi. Slightly coarse bilaterally ABDOMEN: Soft, nontender. Normoactive bowel sounds all 4 quadrants. No guarding or rebound. EXTREMITIES: Normal range of motion, no clubbing or edema. Neurovascularly intact NEUROLOGICAL: Alert and oriented x4.Normal gait and speech. SKIN: Warm, dry, no laceration, no petechiae, no rashes or lesions. Course Orders Ordered: ED Orders 06/11/22 17:52 XR chest 1V Stat EKG-12 Lead Stat 06/11/22 18:15 Blood Culture Stat Complete Blood Count AUTO DIFF Stat Comprehensive Metabolic Panel Stat Lactate (Lactic Acid) Stat Lipase Stat NT-proBNP (BNP-Adult 18+) Stat Partial Thromboplastin Time Stat Procalcitonin Stat Prothrombin Time INR Stat Troponin & CK Cardiac Panel Stat Vital Signs Vital signs: Vital Signs - 8 hr 06/11/22 16:35 06/11/22 16:40 06/11/22 16:41 Temperature 97.3 F L Pulse Rate 102 H 104 H 101 H Respiratory Rate 24 Blood Pressure 188/95 H Pulse Oximetry 95 93 92 Oxygen Delivery Method Room Air 06/11/22 16:41 06/11/22 17:00 06/11/22 17:01 Temperature Pulse Rate 100 H 95 H Respiratory Rate Blood Pressure 188/95 H Pulse Oximetry 94 94 Oxygen Delivery Method 06/11/22 17:01 06/11/22 17:30 06/11/22 17:30 Temperature Pulse Rate 97 H Respiratory Rate Blood Pressure 145/81 H 156/76 H Pulse Oximetry 94 Oxygen Delivery Method 06/11/22 18:00 06/11/22 18:00 06/11/22 18:30 Temperature Pulse Rate 96 H Respiratory Rate Blood Pressure 164/75 H 150/82 H Pulse Oximetry 93 Oxygen Delivery Method 06/11/22 18:30 06/11/22 19:00 06/11/22 19:00 Temperature Pulse Rate 101 H 95 H Respiratory Rate Blood Pressure 165/77 H Pulse Oximetry 94 Oxygen Delivery Method Room Air 06/11/22 19:30 06/11/22 19:30 06/11/22 19:50 Temperature Pulse Rate 99 H 100 H Respiratory Rate Blood Pressure 163/76 H Pulse Oximetry 93 94 Oxygen Delivery Method 06/11/22 19:51 06/11/22 19:51 Temperature Pulse Rate 101 H Respiratory Rate 22 Blood Pressure 171/78 H Pulse Oximetry 93 Oxygen Delivery Method MDM - SOB/Dyspnea Lab Data Result diagrams: 06/11/22 18:15 06/11/22 18:15 Labs: Lab Results 06/11/22 06/11/22 06/11/22 Range/Units 18:15 18:15 18:15 WBC 3.9 L (4.5-11.0) X10^3/uL RBC 4.10 (4.0-5.2) X10^6/uL Hgb 14.4 (12.0-16.0) g/dL Hct 42.3 (36-46) % MCV 103.2 H (80-100) fL MCH 35.2 H (26-34) PG MCHC 34.1 (30-36) % RDW 13.5 (11.6-14.8) % Plt Count 166 (150-400) X10^3/uL Neut % (Auto) 51.1 (50-75) % Lymph % (Auto) 25.8 (25-40) % [place] % (Auto) 18.9 H (3-14) % Eos % (Auto) 3.1 (2-4) % Baso % (Auto) 1.1 (0-2) % Neut # (Auto) 2000 (9744-5066) /uL Lymph # (Auto) 1000 L (5504-6566) /uL [place] # (Auto) 700 (0-900) /uL Eos # (Auto) 100 (0-450) /uL Baso # (Auto) 0 (0-100) /uL PT 15.0 H (10.1-12.7) SECONDS INR 1.3 (0.9-1.3) APTT 32 (26-36) SECONDS Sodium 136 L (137-145) mmol/L Potassium 3.4 (3.4-5.1) mmol/L Chloride 96 L (98-107) mmol/L Carbon Dioxide 33 H (22-32) mmol/L BUN 29 H (7-17) mg/dL Creatinine 1.14 H (0.52-1.04) mg/dL Estimated GFR 47 L (>60) mL/min BUN/Creatinine Ratio 25.4 H (6-22) Glucose 98 (80-110) mg/dL Lactate (0.7-2.1) mmol/L Calcium 8.5 (8.4-10.2) mg/dL Total Bilirubin 0.5 (0.2-1.3) mg/dL AST 30 (14-36) IU/L ALT 25 (<35) IU/L Alkaline Phosphatase 67 (38-126) U/L Total Creatine Kinase 42 (30-135) U/L CK-MB (CK-2) TNP CK-MB (CK-2) Rel Index TNP Troponin I < 0.012 (0.01-0.034) ng/mL NT-Pro-B Natriuret Pep 802 H (<450) pg/mL Total Protein 7.4 (6.3-8.2) g/dL Albumin 3.8 (3.5-5.0) g/dL Globulin 3.6 (1.7-4.1) g/dL Albumin/Globulin Ratio 1.1 (1.0-2.8) Lipase 100 (23-300) U/L Procalcitonin (<0.5) ng/mL 06/11/22 06/11/22 Range/Units 18:15 18:15 WBC (4.5-11.0) X10^3/uL RBC (4.0-5.2) X10^6/uL Hgb (12.0-16.0) g/dL Hct (36-46) % MCV (80-100) fL MCH (26-34) PG MCHC (30-36) % RDW (11.6-14.8) % Plt Count (150-400) X10^3/uL Neut % (Auto) (50-75) % Lymph % (Auto) (25-40) % [place] % (Auto) (3-14) % Eos % (Auto) (2-4) % Baso % (Auto) (0-2) % Neut # (Auto) (2580-6980) /uL Lymph # (Auto) (3673-3872) /uL [place] # (Auto) (0-900) /uL Eos # (Auto) (0-450) /uL Baso # (Auto) (0-100) /uL PT (10.1-12.7) SECONDS INR (0.9-1.3) APTT (26-36) SECONDS Sodium (137-145) mmol/L Potassium (3.4-5.1) mmol/L Chloride (98-107) mmol/L Carbon Dioxide (22-32) mmol/L BUN (7-17) mg/dL Creatinine (0.52-1.04) mg/dL Estimated GFR (>60) mL/min BUN/Creatinine Ratio (6-22) Glucose (80-110) mg/dL Lactate 0.9 (0.7-2.1) mmol/L Calcium (8.4-10.2) mg/dL Total Bilirubin (0.2-1.3) mg/dL AST (14-36) IU/L ALT (<35) IU/L Alkaline Phosphatase (38-126) U/L Total Creatine Kinase (30-135) U/L CK-MB (CK-2) CK-MB (CK-2) Rel Index Troponin I (0.01-0.034) ng/mL NT-Pro-B Natriuret Pep (<450) pg/mL Total Protein (6.3-8.2) g/dL Albumin (3.5-5.0) g/dL Globulin (1.7-4.1) g/dL Albumin/Globulin Ratio (1.0-2.8) Lipase (23-300) U/L Procalcitonin 0.08 (<0.5) ng/mL Imaging Data Chest x-ray: Radiologist's Impression: : Marisa Moreno MR#: [id number] : 1940 Acct:[id number] Age/Sex: 82 / F Date of Service: 06/11/22 Loc: ED Accession Number: [id number] ?? Procedure: XR chest 1V Ordering Provider: Sulema Valerio D.O. PROCEDURE:? XR CHEST 1V ? INDICATIONS:? chest pain ? TECHNIQUE:? One view of the chest was acquired.? ? COMPARISON:? [facility], CR, CHEST 2 VIEW, 07/20/2015, 10:23.? [facility], CR, XR CHEST 1V, 06/05/2022, 15:02.? [facility], CR, XR CHEST 2V, 04/02/2019, 10:58. ? FINDINGS:? ? Surgical changes and devices:? None.? ? Lungs and pleura:? Lungs are clear.? No pleural effusions or pneumothorax.? ? Mediastinum:? Mediastinal contours appear normal.? Heart size is normal.? ? Bones and chest wall:? No suspicious bony lesions.? Overlying soft tissues appear unremarkable.? ? IMPRESSION:? No acute cardiopulmonary disease. ? ? Dictated by: Howard Robertson M.D. on 06/11/2022 at 18:54 ? ? Approved by: Howard Robertson M.D. on 06/11/2022 at 18:54 ? ECG Data Interpretation: Atrial fibrillation rate [address] change similar to previous EKG on 06/05/2022 MDM Narrative Medical decision making narrative: Patient overall appears well. Blood work is reassuring x-rays negative. No evidence of congestive heart failure or pneumonia. O2 sats 93% on room air without any sort of dyspnea. Symptoms are likely related to her known COVID infection. Supportive care only. She does not meet sepsis criteria. No need for antibiotics at this time. Differential diagnosis includes pneumonia congestive heart failure sepsis COPD exacerbation, doubt PE although on Eliquis Discharge Plan Departure Patient Disposition: Home Clinical Impression: COVID-19 Instructions: COVID-19 Activity Restrictions/Additional Instructions: *You have been diagnosed with COVID-19 *What to do: At this time no indication for antibiotics or hospitalization. [place] continue to hydrate and drink fluids. Treat fever if needed and mo nitor oxygen at home *Continue to take medications as directed *Follow up with your primary care provider in 2-3 days or call [phone] *Return to ER if you should have oxygen less than 90%, increasing chest pain shortness of breath or any new, worsening or concerning symptoms Prescriptions: No Action diltiazem HCl 180 mg capsule,extended release 24hr 180 mg PO DAILY Eliquis 2.5 mg tablet 2.5 mg PO BID valsartan 80 mg tablet 80 mg PO DAILY furosemide [Lasix] 40 mg tablet 40 mg PO DAILY Qty: 4 0RF Referrals: Andi Quijano MD [Primary Care Provider] - Visit Report Forms: Patient Portal/API
[2022-06-11 18:33] LABS: Add Manual Diff / Slide Review NO; Basophils Absolute Auto 0 /uL (0-100); Basophils Percent Auto 1.1 % (0-2); Eosinophils Absolute Auto 100 /uL (0-450); Eosinophils Percent Auto 3.1 % (2-4); Hematocrit 42.3 % (36-46); Hemoglobin 14.4 g/dL (12.0-16.0); Lymphocytes Absolute Auto 1000 /uL (1100-4500); Lymphocytes Percent Auto 25.8 % (25-40); Mean Corpuscular HGB Conc 34.1 % (30-36); Mean Corpuscular Hemoglobin 35.2 PG (26-34); Mean Corpuscular Volume 103.2 fL (80-100); Monocytes Absolute Auto 700 /uL (0-900); Monocytes Percent Auto 18.9 % (3-14); Neutrophils Absolute Auto 2000 /uL (1500-7000); Neutrophils Percent Auto 51.1 % (50-75); Platelet Count 166 X10^3/uL (150-400); Red Cell Distribution Width 13.5 % (11.6-14.8); White Blood Cell Count 3.9 X10^3/uL (4.5-11.0)
[2022-06-11 18:46] LABS: INR 1.3 (0.9-1.3)
[2022-06-11 18:48] LABS: PTT Partial Thromboplastin Tim 32 SECONDS (26-36)
[2022-06-11 18:49] LABS: Lactate (Lactic Acid) 0.9 mmol/L (0.7-2.1)
[2022-06-11 18:51] LABS: Alanine Aminotransferase 25 IU/L (<35); Albumin 3.8 g/dL (3.5-5.0); Albumin Globulin Ratio 1.1 (1.0-2.8); Alkaline Phosphatase 67 U/L (38-126); Aspartate Aminotransferase 30 IU/L (14-36); BUN Creatinine Ratio 25.4 (6-22); Bilirubin Total 0.5 mg/dL (0.2-1.3); Blood Urea Nitrogen 29 mg/dL (7-17); Calcium 8.5 mg/dL (8.4-10.2); Carbon Dioxide 33 mmol/L (22-32); Chloride 96 mmol/L (98-107); Creatine Kinase 42 U/L (30-135); Estimated Glomerular Filt Rate 47 mL/min (>60); Globulin 3.6 g/dL (1.7-4.1); Glucose 98 mg/dL (80-110); HEMOLYSIS < 15 (0-50); Lipase 100 U/L (23-300); Potassium 3.4 mmol/L (3.4-5.1); Sodium 136 mmol/L (137-145); Total Protein 7.4 g/dL (6.3-8.2)
[2022-06-11 19:01] LABS: NT-proBNP (BNP-Adult 18+) 802 pg/mL (<450); Troponin I < 0.012 ng/mL (0.01-0.034)
[2022-06-11 19:07] LABS: Procalcitonin 0.08 ng/mL (<0.5)
== END 2022-06-11 20:00 | disposition home or self-care (01) ==
PROVIDERS: Emergency Provider Emergency Medicine; PCP Student in an Organized Health Care Education/Training Program
DX: U07.1 COVID-19 (principal); R07.9 Chest pain, unspecified; I50.9 Heart failure, unspecified; I48.91 Unspecified atrial fibrillation; Z79.01 Long term (current) use of anticoagulants
CPT/HCPCS: 36415; 71045; 80053; 82550; 83605; 83690; 83880; 84145; 84484; 85025; 85610; 85730; 87040; 93005; 99283; 99284

== ENCOUNTER → 2023-04-19 11:33 | Outpatient (CLI) | payer MEDICARE, BC, SELFPAY ==
--- NOTE | 2023-04-19 11:40 | DI.RAD.S_ITS ---
PROCEDURE: XR CHEST 2V INDICATIONS: AFIB TECHNIQUE: 2 views of the chest were acquired. COMPARISON: [facility], CR, XR CHEST 1V, 06/11/2022, 18:31. [facility], CR, XR CHEST 2V, 04/02/2019, 10:58. FINDINGS: Surgical changes and devices: None. Lungs and pleura: Lungs are clear. No pleural effusions or pneumothorax. Mediastinum: Mediastinal contours are normal. Heart size is enlarged and stable. Bones and chest wall: No suspicious bony abnormalities. Soft tissues appear unremarkable. IMPRESSION: Cardiomegaly. No acute pulmonary opacity. Approved by: Fam Moreira M.D. on 04/19/2023 at 20:45
[2023-04-19 12:51] LABS: Add Manual Diff / Slide Review NO; Basophils Absolute Auto 0 /uL (0-100); Basophils Percent Auto 0.6 % (0-2); Eosinophils Absolute Auto 200 /uL (0-450); Eosinophils Percent Auto 2.1 % (2-4); Hematocrit 46.6 % (36-46); Hemoglobin 15.9 g/dL (12.0-16.0); Lymphocytes Absolute Auto 1100 /uL (1100-4500); Lymphocytes Percent Auto 14.6 % (25-40); Mean Corpuscular HGB Conc 34.2 % (30-36); Mean Corpuscular Hemoglobin 36.8 PG (26-34); Mean Corpuscular Volume 107.9 fL (80-100); Monocytes Absolute Auto 900 /uL (0-900); Monocytes Percent Auto 12.4 % (3-14); Neutrophils Absolute Auto 5100 /uL (1500-7000); Neutrophils Percent Auto 70.3 % (50-75); Platelet Count 279 X10^3/uL (150-400); Red Blood Cell Count 4.32 X10^6/uL (4.0-5.2); Red Cell Distribution Width 14.5 % (11.6-14.8); White Blood Cell Count 7.3 X10^3/uL (4.5-11.0)
[2023-04-19 13:19] LABS: Erythrocyte Sedimentation Rate 7 MM/HR (0-20)
[2023-04-19 14:20] LABS: Alanine Aminotransferase 16 IU/L (<35); Albumin 4.1 g/dL (3.5-5.0); Albumin Globulin Ratio 1.1 (1.0-2.8); Alkaline Phosphatase 78 U/L (38-126); Aspartate Aminotransferase 23 IU/L (14-36); BUN Creatinine Ratio 26.1 (6-22); Bilirubin Total 0.7 mg/dL (0.2-1.3); Blood Urea Nitrogen 23 mg/dL (7-17); Calcium 9.6 mg/dL (8.4-10.2); Carbon Dioxide 32 mmol/L (22-32); Chloride 96 mmol/L (98-107); Estimated Glomerular Filt Rate > 60 mL/min (>60); Globulin 3.9 g/dL (1.7-4.1); Glucose 82 mg/dL (80-110); HEMOLYSIS < 15 (0-50); Potassium 4.7 mmol/L (3.4-5.1); Sodium 136 mmol/L (137-145)
[2023-04-19 14:40] LABS: Thyroid Stimulating Hormone 2.04 uIU/mL (0.47-4.68)
== END ==
LOC: LAB 11:36 → RAD 11:39
PROVIDERS: Referring Provider Internal Medicine Cardiovascular Disease; Visit Provider Internal Medicine Cardiovascular Disease
DX: I48.19 Other persistent atrial fibrillation (principal); I51.7 Cardiomegaly
CPT/HCPCS: 36415; 71046; 80053; 84443; 85025; 85651

== ENCOUNTER → 2024-05-07 10:07 | Outpatient (CLI) | payer MEDICARE, BC, SELFPAY ==
[2024-05-07 11:45] LABS: BUN Creatinine Ratio 23.4 (6-22); Blood Urea Nitrogen 25 mg/dL (7-17); Calcium 9.6 mg/dL (8.4-10.2); Carbon Dioxide 34 mmol/L (22-32); Chloride 98 mmol/L (98-107); Estimated Glomerular Filt Rate 51 mL/min (>60); Glucose 134 mg/dL (80-110); HEMOLYSIS < 15 (0-50); Potassium 4.6 mmol/L (3.4-5.1); Sodium 136 mmol/L (137-145)
== END ==
PROVIDERS: Referring Provider Nurse Practitioner; Visit Provider Nurse Practitioner
DX: R00.0 Tachycardia, unspecified (principal); I43 Cardiomyopathy in diseases classified elsewhere
CPT/HCPCS: 36415; 80048

== ENCOUNTER 2024-11-17 16:51 | Emergency (ER) | payer MEDICARE, BC, SELFPAY ==
[2024-11-17 16:55] VITALS: BP 170/90; PULSE 97; RESP 16; TEMP 36.4; O2SAT 96; BMI 23.6
--- NOTE | 2024-11-17 19:55 | PC.NURSE ---
Patient in the waiting room waiting to be brought back to a room. This tech went out to the lobby to round on patients and get updated vital signs. Patient refused vitals at this time 1933. ILENE de souza
--- NOTE | 2024-11-19 17:21 | ED.SKABFB ---
HPI - Skin/Abscess/Foreign Bdy General Chief complaint: Skin/Abscess/Foreign Body Stated complaint: shingles Source: patient Mode of arrival: Ambulatory Limitations: no limitations Related Data Home Medications Medication Instructions Recorded Confirmed apixaban 2.5 mg tablet (Eliquis) 2.5 mg PO BID 11/21/19 02/25/20 valsartan 80 mg tablet 80 mg PO DAILY 11/21/19 02/25/20 diltiazem HCl 180 mg 180 mg PO DAILY HR and BP control 09/21/20 capsule,extended release 24 hr Previous Rx's Medication Instructions Recorded furosemide 40 mg tablet (Lasix) 40 mg PO DAILY #4 tabs 06/05/22 Allergies Allergy/AdvReac Type Severity Reaction Status Date / Time No Known Drug Allergies Allergy Unverified 06/05/22 14:51 Patient History Medical History Atrial fibrillation with rapid ventricular response (~2011) Chicken pox (~1943) Measles Plantar warts (~1951) Tinnitus (~2014) Surgical History History of cataract removal with insertion of prosthetic lens (~2017) Family History Father History of heart disease Mother Cancer Sister Cancer Social History Smoking Status: Never smoker Smoking Status: Never smoker alcohol intake frequency: 0-2 drinks per day Alcohol type: wine Exam Initial Vital Signs Initial Vital Signs: Vital Signs Temperature 97.6 F 11/17/24 16:55 Pulse Rate 97 H 11/17/24 16:55 Respiratory Rate 16 11/17/24 16:55 Blood Pressure 170/90 H 11/17/24 16:55 Pulse Oximetry 96 11/17/24 16:55 Oxygen Delivery Method Room Air 11/17/24 16:55 Discharge Plan Departure Patient Disposition: Left Without Being Seen Clinical Impression: Patient left without being seen Prescriptions: No Action diltiazem HCl 180 mg capsule,extended release 24hr 180 mg PO DAILY Eliquis 2.5 mg tablet 2.5 mg PO BID valsartan 80 mg tablet 80 mg PO DAILY furosemide [Lasix] 40 mg tablet 40 mg PO DAILY Qty: 4 0RF
== END 2024-11-17 21:04 | disposition left against medical advice (07) ==
PROVIDERS: Emergency Provider Family Medicine
DX: Z53.21 Procedure and treatment not carried out due to patient leaving prior to being seen by health care provider (principal)
CPT/HCPCS: 99281